=== PATIENT | male | born 1960 | race Two or more races ===

== ENCOUNTER 2020-06-02 13:13 | Emergency (ER) | payer MEDICAID, MEDICARE ==
[~2020-06-02] VITALS: Ht 160 cm; Wt 60.2 kg
[2020-06-02 13:16] VITALS: BP 94/60
--- NOTE | 2020-06-02 14:47 | NUR ---
SCISSORS GRINDER: CALLED FOR ROOM, NO ANSWER
--- NOTE | 2020-06-02 15:02 | NUR ---
SMOKING PIPE COATER: PT TO ROOM FROM [facility]
== END 2020-06-02 17:21 | disposition home or self-care (01) ==
LOC: ED 15:24
DX: N45.1 Epididymitis (principal); I10 Essential (primary) hypertension; E11.9 Type 2 diabetes mellitus without complications; F17.210 Nicotine dependence, cigarettes, uncomplicated
CPT/HCPCS: 76870; 99284